=== PATIENT | female | born 1965 ===

== ENCOUNTER 2018-04-02 09:29 | Outpatient (CLI) | payer OTHER ==
[~2018-04-02] VITALS: Ht 165.1 cm; Wt 68.0 kg
== END 2018-04-02 09:45 | disposition home or self-care (01) ==
LOC: OFIC 805 09:29
DX: H10.13 Acute atopic conjunctivitis, bilateral (principal); J30.89 Other allergic rhinitis; J32.8 Other chronic sinusitis

== ENCOUNTER 2019-01-04 11:33 | Outpatient (CLI) | payer OTHER | END 2019-01-04 11:39 | disposition home or self-care (01) | LOC: MAMO-SONO 11:33 | DX: N60.11 Diffuse cystic mastopathy of right breast (principal); N60.12 Diffuse cystic mastopathy of left breast ==

== ENCOUNTER 2021-02-02 16:23 | Outpatient (CLI) | payer OTHER | END 2021-02-02 16:30 | disposition home or self-care (01) | LOC: RAD 16:23 | PROVIDERS: ATTEND Orthopaedic Surgery Sports Medicine | DX: M22.02 Recurrent dislocation of patella, left knee (principal); M22.01 Recurrent dislocation of patella, right knee; M22.42 Chondromalacia patellae, left knee; M17.11 Unilateral primary osteoarthritis, right knee ==